=== PATIENT | male | born 1960 | race Caucasian/White ===

== ENCOUNTER 2019-05-13 06:17 | Day surgery (SDC) ==
[2019-05-13] MEDS ORDERED: REGLAN ONE (06:51)
[2019-05-13] MEDS ORDERED: PEPCID ONE (06:51)
[2019-05-13] MEDS ORDERED: KEFZOL 1 GM/D5W 1 GM/50 ML IVPB ONE (06:51)
[2019-05-13] MEDS ORDERED: LR 1,000 ML ONE (06:51)
[2019-05-13] MEDS ORDERED: DIPRIVAN 1% ONE (07:33)
[2019-05-13] MEDS ORDERED: XYLOCAINE-MPF 2% ONE ×2 (07:33→12:57)
[2019-05-13] MEDS ORDERED: VERSED ONE (07:34)
[2019-05-13] MEDS ORDERED: XYLOCAINE 1%/EPI 1:100,000 ONE (09:19)
[2019-05-13] MEDS ORDERED: FENTANYL ONE (11:33)
[2019-05-13] MEDS ORDERED: DECADRON ONE (11:52)
[2019-05-13] MEDS ORDERED: ZOFRAN ONE (11:52)
[2019-05-13] MEDS ORDERED: DILAUDID ONE (12:34)
[2019-05-13] MEDS ORDERED: SODIUM CHLORIDE 0.9% 10 ML ONE (12:47)
[2019-05-13] MEDS ORDERED: PHENERGAN IV PRN (15:07)
[2019-05-13] MEDS ORDERED: MORPHINE IV PRN (15:08)
[2019-05-13] MEDS: NORCO-10 PO PRN ×2 (15:19→21:50)
[2019-05-13] MEDS: MOTRIN PO SCH (19:32)
[2019-05-13] MEDS: COLACE PO SCH (20:40)
[2019-05-13] MEDS: PERIDEX MT SCH (20:41)
[2019-05-13] MEDS: TYLENOL PO SCH (21:51)
--- NOTE | 2019-05-13 22:10 | OPERATIVE NOTE ---
PROCEDURE DATE: 05/13/2019 PREOPERATIVE DIAGNOSIS: 1. Chronic venous hypertension left lower extremity. 2. Ropey varicose veins left lower extremity. 3. Venous insufficiency superficial veins left lower extremity with edema and skin changes. PRINCIPAL PROCEDURE: 1. Open ligation, division, and stripping of the left great saphenous veins from the left saphenous femoral junction to below the knee. 2. Open ligation of mechanical engineering specialist veins, subfascial with ultrasound guidance left leg. SURGEON: Pat Heath MD. FIXTURE BUILDER: Baldo Wright RN. ANESTHESIA: General in addition to local anesthetic. ESTIMATED BLOOD LOSS: 250 mL. DRAINS: None. INDICATIONS: Mr. Pablo Terrell is a 58-year-old white male who has significant bilateral superficial and deep venous insufficiency causing chronic swelling of his legs bilaterally, ropey varicose veins, skin changes and edema of his legs. He has no venous stasis ulcers at this time. He has numerous symptoms including pain of his lower extremities. He has tried to wear compression hose but they cause pain. We have put him through a radiofrequency ablation of his great saphenous vein on the left but because this vein was so large it did not totally ablate this vein and we felt we had to perform an open vein stripping and also ligate some mechanical engineering specialist veins medial aspect left leg to control the amount of superficial venous insufficiency involving his left leg. FINDINGS: He had a large left great saphenous vein that had webs within it but it was still patent enough to have blood flow. We found 2 large perforating veins medial aspect of the left leg above the left ankle and these were ligated below the fascia using an open incision. PROCEDURE: The patient was marked using ultrasound prior to surgery. We marked his left great saphenous vein along its length. We also marked the branches off the left great saphenous vein and the perforators. I marked his ropey varicose veins. He then went to the operating room, was placed supine, received general anesthesia, was intubated and his left lower extremity was prepped and draped in a sterile field. We began the procedure by making a small oblique incision just below the groin on the left with a 15 blade scalpel. We used the cautery to transect through the soft tissue to the superficial fascia where we identified his large proximal great saphenous vein. We dissected it down to where it entered the deep femoral vein. We preserved the epigastric vein branches. We then made a counterincision in the distal left leg overlying the distal great saphenous vein and exposed it. We isolated between silk ties. We made a small venotomy in the saphenous vein and then we placed a stripper device through this venotomy and directed it proximally. We were unable to get all the way to the saphenofemoral junction but we got to about the midthigh. I made a counterincision and brought out the stripping device. We put a large head on the stripper and we pulled the stripper through the medial aspect of the leg and removed the saphenous vein. The remainder of the saphenous vein proximally was removed to the saphenofemoral junction and we ligated the left great saphenous vein at the saphenofemoral junction preserving the epigastric branches. We then took time to make an incision overlying mechanical engineering specialist veins and these were above the left ankle medially where he had skin changes and edema. These were large perforating veins, 2 separate ones. We dissected them down subfascially and ligated them. I ligated not only these perforators but the branches. I sewed the perforators closed using a running 5-0 Prolene stitch. The distal aspect of these perforators were removed. The perforators were allowed to retract back subfascially. We took a total of 6 incisions to remove some varicosities in the remainder of the great saphenous vein medially left leg. We did have some bleeding when we were dealing with perforators. We had a total blood loss of 250 mL. We closed our incisions in layers. First layer was 3-0 popoff Vicryl stitches to close the subcutaneous tissue. The skin was closed with 4-0 Monocryl subcuticular stitches and glue was placed. It must be noted that we did use ultrasound throughout this operation not only to continue to find branches off the great saphenous vein on the left but also define these perforators. I closed the skin overlying the perforators in 2 layers, 1st layer 3-0 Popoff Vicryl stitches and then I closed the skin with a running 3-0 nylon stitch. He tolerated these procedures well. We felt that a lot of his ropey varicose veins may scar down and go away now that we have removed his left great saphenous vein and these large perforators which were also supplying his varicose veins. We placed a knee high hose on him after the procedure. Plans are for him to go the recovery room and at least be hospitalized overnight. He tolerated the procedure well. cc: Pat Heath MD
[2019-05-14] MEDS: MOTRIN PO SCH (01:50)
[2019-05-14] MEDS: TYLENOL PO SCH (05:30)
[2019-05-14] MEDS ORDERED: LOVENOX SUBQ SCH (06:00)
[2019-05-14 07:34] VITALS: BP 110/67
[2019-05-14] MEDS: PERIDEX MT SCH (08:12)
[2019-05-14] MEDS: COLACE PO SCH (08:12)
--- NOTE | 2019-05-14 19:53 | GENERAL SURGERY PROGRESS NOTE ---
DATE: 05/14/2019 SUBJECTIVE: Patient seems to be doing okay. His pain is controlled. OBJECTIVE: Vital Signs: Patient is currently afebrile. His vital signs are stable. General: No acute distress. Cardiovascular: Regular rate and rhythm. Lungs: Grossly clear. Extremities: Compression stocking noted to the leg. It seems to be healing. No active bleeding. ASSESSMENT AND PLAN: A 58-year-old gentleman status post open ligation, division and stripping of left greater saphenous vein. Postoperative state: At this time patient seems to be doing well. We will send him home today. His pain seems to be controlled. cc: MD Pat Bledsoe MD
== END 2019-05-14 09:12 | disposition home or self-care (01) ==
LOC: 4N 06:17 → OR 06:17
PROVIDERS: ATTEND Surgery

== ENCOUNTER 2019-05-17 14:05 | Inpatient (IN) ==
[2019-05-17] MEDS ORDERED: SALINE LOCK IV FLUID XX ONE (15:55)
[2019-05-17] MEDS ORDERED: TYLENOL PO PRN (16:31)
[2019-05-17] MEDS ORDERED: PHENERGAN IV PRN (16:41)
[2019-05-17] MEDS ORDERED: SODIUM CHLORIDE 0.9% INJ PRN (16:45)
[2019-05-17] MEDS: MORPHINE IV PRN ×2 (16:53→20:55)
[2019-05-17] MEDS ORDERED: D5 1/2 NS + KCL 20 MEQ 1,000 ML IV SCH (17:00)
[2019-05-17 17:04] LABS: BASO# 0.03 X1000 (0.0-0.2); BASO% 0.4 % (0.0-0.8); HEMATOCRIT 41.1 % (42.0-52.0); HEMOGLOBIN 13.5 g/dL (14.0-18.0); IMM GRAN# 0.02 X1000 (0.0-0.04); IMM GRAN% 0.2 % (0.0-0.5); LYMPH# 1.25 X1000 (1.2-3.4); LYMPH% 15.2 % (20.5-51.1); MCH 29.2 PG (27-31); MCHC 32.8 g/dL (33-37); MCV 88.8 FL (81-99); MONO# 1.03 X1000 (0.11-0.59); MONO% 12.5 % (1.7-9.3); MPV 9.2 FL (7.4-10.4); NEUT% 71.7 % (42.2-75.2); PLT 207 X1000 (130-400); RBC 4.63 XMIL (4.7-6.1); RDW 13.1 % (11.5-14.5); WBC 8.23 X1000 (4.8-10.8)
--- NOTE | 2019-05-17 17:15 | Diag Imaging Result Doc PS360 ---
EXAM: KUB ABDOMEN - 05/17/2019 HISTORY: SBO TECHNIQUE: Portable AP spine abdomen COMPARISON: None. FINDINGS: There is a moderate amount retained fecal debris in the colon suggesting constipation. The bowel gas pattern is otherwise unremarkable. There is no abnormal gaseous small bowel distention seen. There is lumbar dextro rotatory scoliosis noted. There are osteoarthritic changes noted at the right hip. IMPRESSION: Evidence of constipation. Unremarkable bowel gas pattern otherwise. Electronically signed by Griffin Inman 05/17/2019 5:13 PM
[2019-05-17] MEDS ORDERED: NAPROSYN PO PRN (17:29)
[2019-05-17 17:52] LABS: AGAP 15; BUN 22 mg/dL (8-22); CALCIUM 8.8 mg/dL (8.8-10.2); CHLORIDE 93 mmol/L (98-107); COSMO 273; CREATININE 1.1 mg/dL (0.7-1.2); ESTIMATED GFR > 60; GLUCOSE 121 mg/dL (70-104); PHOSPHORUS 3.6 mg/dL (2.7-4.5); POTASSIUM 4.5 mmol/L (3.5-5.1); SODIUM 134 mmol/L (136-145); TCO2 26 mmol/L (25-35)
[2019-05-17] MEDS: VALTREX PO SCH (17:59)
[2019-05-17] MEDS: NS 1,000 ML IV SCH ×2 (18:00→18:03)
[2019-05-17] MEDS ORDERED: GLYCERIN ADULT PR ONE (20:15)
[2019-05-17] MEDS: COLACE PO SCH (20:54)
[2019-05-17] MEDS: NEURONTIN PO SCH (20:54)
[2019-05-17] MEDS: MIRALAX PO SCH (20:55)
--- NOTE | 2019-05-17 21:55 | HISTORY AND PHYSICAL ---
PRESENTING COMPLAINT: Headache, nausea, vomiting. HISTORY OF PRESENT COMPLAINT: Mr. Terrell is a 58-year-old gentleman who is known to have venous insufficiency. Just recently underwent a left lower extremity venous vascular surgery on 05/13/2019. Mr. Terrell refers that immediately after the surgery, he started feeling a left-sided temporal to the jaw pain. Subsequently, this continued just to get worse. He did not have any visual changes, but then he started having some nausea and vomiting. He went to see Dr. Heath who referred him to the hospital. Mr. Terrell also refers that 3 days ago, he started feeling some rash also on the same side of the pain. He denies any gait disturbances. He denies any rash anywhere else on his body, and he has not traveled recently outside the [place]. PAST MEDICAL HISTORY: DVTs and chronic venous insufficiency. PAST SURGICAL HISTORY: Multiple orthopedic surgeries and recent lower extremity vascular surgeries. FAMILY HISTORY: Unremarkable. SOCIAL HISTORY: Patient denies smoking. Occasional alcohol use, but no recreational drug use. REVIEW OF SYSTEMS: A 14 point review of systems conducted with Mr. Terrell was unremarkable except what we have in the HPI. PHYSICAL EXAMINATION: VITAL SIGNS: Blood pressure is 134/65, pulse of 80, respirations 18, temperature is 100.6 degrees. GENERAL: Mr. Terrell is a 58-year-old gentleman. He is in bed, in no distress. Mucosa is pink and moist. Anicteric and acyanotic. NECK: Supple. HEAD: Normocephalic and atraumatic. FACE: The patient has some mild vesicle rash on the left cheek to the anterior part of the neck on the same side. There are some vesicular lesions up to the chin on the left side. There is tenderness. There is some warm necrotic lesion in the middle of the left cheek, almost to the anterior part of the ear. RESPIRATORY: Good air entry bilaterally. No crepitations. No rhonchi. CARDIOVASCULAR: Regular rate and rhythm. No murmurs, no rubs, no gallops. GI: Abdomen soft, nontender. Bowel sounds present. EXTREMITIES: There is left lower extremity swelling which is in compressive stockings, that had just recent vascular intervention. The right lower extremity also has some erythematous changes in the medial aspect of the lower extremity with some nodulations. CENTRAL NERVOUS SYSTEM: Patient is awake, alert, and oriented. There is no focal neurological deficit. Power is 5/5 in all extremities. Sensation is intact. Cranial nerves 2 through 12 have been grossly examined and unremarkable except for the 5th left trigeminal area, both the submandibular and the maxillary regions. That seems to have erythematous vesicular rash, which is consistent with possible trigeminal zoster. LABORATORY DATA: No lab work for this morning. IMAGING STUDIES: A CT scan of the head and neck, which was done yesterday, showed a submandibular adenopathy. No evidence of arterial abnormality. They did a head CT scan also yesterday which showed just chronic ischemic changes. ASSESSMENT: Mr. Terrell presented with acute onset of left-sided headaches associated with some vesicular rash. No visual changes. Mild elevation in the temperature. 1. Suspected trigeminal zoster infection. We will start the patient on valaciclovir, gabapentin, and get Infectious Disease to evaluate him. Until we get an expert opinion, we will keep him in contact isolation. 2. Nausea and vomiting, probably all related to the viral illness; however, Mr. Terrell also has not had any bowel movement. He was on opioid and I suspect he does have some underlying constipation. We will get a KUB and put him on a bowel regimen. 3. Chronic venous insufficiency, status post recent vascular surgery on the left lower extremity noted. 4. History of deep venous thrombosis. cc: MD Pat Bella MD
--- NOTE | 2019-05-17 23:48 | HISTORY AND PHYSICAL ---
INDICATIONS: Mr. 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 After that surgery was hospitalized overnight and was discharged home on postop day 1, per Dr. Paez. I saw him in our outpatient offices today. He did present to the emergency department yesterday with symptoms of nausea, vomiting and a new rash involving his left face, swelling of his left face and headache. He states that he also might have constipation. It was felt that he needed to be admitted from our outpatient offices today for further treatment of these symptoms and we felt he could have shingles involving his left face. PAST MEDICAL HISTORY: He has had a right total knee replacement per Dr. Randolph, he has had neck surgery, I put him through previous vein surgery which was percutaneous, he has had arthroscopy of both knees. 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 He uses smokeless tobacco. He does not smoke. He drinks occasionally. He is active. FAMILY HISTORY: His father had colon cancer. His mother also had cancer of unknown. REVIEW OF SYSTEMS: A 14 point review of systems was performed and was essentially negative except for is venous insufficiency which was symptomatic with swelling of his lower extremities, ropey varicose veins and skin changes. MEDICATIONS: Gabapentin and Celebrex. ALLERGIES: No known drug allergies. PHYSICAL EXAM: Mr. Pablo Terrell is a middle-aged white male. He has swelling involving his left face and what appears to be a red rash involving his left face which we felt might be shingles. He was complaining of a left-sided headache. He had no cervical or supraclavicular lymphadenopathy. He had no work of breathing. Lungs were clear to auscultation and percussion bilaterally. His heart had a regular rate. His heart rate is 72, blood pressure 123/70, O2 saturation is 99%. He has a low-grade temperature 99.3 degrees, he is 6 feet, 225 pounds. His abdomen was soft, nontender, without palpable mass. No costovertebral tenderness. Rectal exam was not performed. He does have palpable femoral pulses. He has bruising and swelling involving his left lower extremity secondary to recent surgery. He also has multiple small incisions intact along his left leg from his previous surgery. Right leg is with swelling and skin changes consistent with chronic venous insufficiency and venous hypertension of his right lower extremity. Neurologically, he has no focal deficit. He does complain of headache. IMPRESSION: 1. New rash and swelling involving his left face possible shingles. 2. Left-sided headache which is severe. 3. Nausea and vomiting. He states that he cannot even drink that well. 4. Constipation. 5. Postop venous surgery left lower extremity. DIAGNOSTIC DATA: His white blood cell count is 8, hematocrit is 41%. Electrolytes show a BUN and creatinine of 22 and 1.1. His glucose is 121. C-reactive protein is 12.58. Abdominal x-ray suggested constipation. PLAN: I have admitted him. I have asked our hospitalist to see him because of this rash involving his face, his headache. Will hydrate him because of his nausea and vomiting. We will treat his constipation. We will keep him on low-dose Lovenox because of his recent surgery. cc: Pat Heath MD
[2019-05-18] MEDS: MORPHINE IV PRN ×3 (00:52→11:33)
[2019-05-18] MEDS: PHENERGAN PO PRN (01:04)
[2019-05-18 06:59] LABS: BASO# 0.03 X1000 (0.0-0.2); BASO% 0.4 % (0.0-0.8); EOS# 0.09 X1000 (0.0-0.7); EOS% 1.1 % (0.0-10.0); HEMOGLOBIN 12.5 g/dL (14.0-18.0); LYMPH# 2.16 X1000 (1.2-3.4); LYMPH% 26.4 % (20.5-51.1); MCH 28.9 PG (27-31); MCHC 32.1 g/dL (33-37); MCV 90.3 FL (81-99); MONO# 1.12 X1000 (0.11-0.59); MONO% 13.7 % (1.7-9.3); MPV 9.6 FL (7.4-10.4); NEUT# 4.78 X1000 (1.4-6.5); NEUT% 58.4 % (42.2-75.2); PLT 202 X1000 (130-400); RBC 4.32 XMIL (4.7-6.1); RDW 13.2 % (11.5-14.5); WBC 8.18 X1000 (4.8-10.8)
[2019-05-18 07:32] LABS: AGAP 13; ALB/GLOB RATIO 1.3; ALBUMIN 3.6 g/dL (3.5-5.0); ALKALINE PHOSPHATASE 52 U/L (32-122); BUN 24 mg/dL (8-22); CALCIUM 8.6 mg/dL (8.8-10.2); CHLORIDE 95 mmol/L (98-107); COSMO 271; CREATININE 1.1 mg/dL (0.7-1.2); ESTIMATED GFR > 60; GLUCOSE 104 mg/dL (70-104); GOT 16 U/L (10-34); GPT 18 U/L (10-44); POTASSIUM 4.2 mmol/L (3.5-5.1); SODIUM 133 mmol/L (136-145); TCO2 25 mmol/L (25-35); TOTAL BILIRUBIN 0.88 mg/dL (0.20-1.00); TOTAL PROTEIN 6.3 g/dL (6.3-8.3)
[2019-05-18] MEDS: PRILOSEC PO SCH (07:51)
[2019-05-18] MEDS: MIRALAX PO SCH (08:13)
[2019-05-18] MEDS: NEURONTIN PO SCH ×2 (08:14→20:40)
[2019-05-18] MEDS: VALTREX PO SCH (08:14)
[2019-05-18] MEDS: LOVENOX SUBQ SCH (08:14)
[2019-05-18] MEDS: COLACE PO SCH ×2 (08:14→20:40)
[2019-05-18] MEDS: NORCO-10 PO PRN ×2 (09:42→20:40)
[2019-05-18] MEDS: ZOVIRAX IV SCH ×2 (11:33→18:47)
[2019-05-18] MEDS: NS IV SCH ×2 (11:33→18:47)
--- NOTE | 2019-05-18 13:39 | PROGRESS NOTE ---
DATE: 05/18/2019 SUBJECTIVE: This morning Mr. Terrell refers to be having a lot of headaches. He has not had any vomiting and no bowel movement. OBJECTIVELY: Vital: Blood pressure is 103/56, pulse of 62, respiration is 18, temperature 98.9 degrees. General: Mr. Terrell is a 58-year-old gentleman. He is in bed. He is not in any cardiopulmonary distress. HEENT: Mucosa is pink and moist. Anicteric. Acyanotic. Face: There is still some erythematous vesicular rash on the left side of the face. Neck: Supple. Chest: Good air entry bilaterally. There was no crepitations no rhonchi. Cardiovascular: Regular rate and rhythm. Abdomen: Soft. Bowel sounds reduced. Extremities: The left lower extremity has minimal swelling from recent vascular surgery. Some bruises on the right as well. 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 No meningeal signs. LABORATORY DATA: WBC is 8.18, hemoglobin is 12.5, platelet count of 202,000. Chemistry is also reviewed, unremarkable. The patient has been started on IV acyclovir. ASSESSMENT: 1. Suspected trigeminal zoster infection. Patient is currently switched to IV acyclovir with a suspicion of possible zoster encephalitis Mr. Terrell continued having headaches. He was slightly febrile earlier on and he was having some nausea and vomiting, so I think it is reasonable for lumbar puncture. I have discussed this with Dr. Hernandez who is Infectious Disease and he is recommending that we get an lumbar puncture. We will try get an lumbar puncture this afternoon. 2. Constipation will continue bowel movement. 3. Chronic venous insufficiency. The patient is still status post recent vascular surgery on the left lower extremity. 4. History of deep venous thromboses. Patient is on deep venous thrombosis prophylaxis. cc: Lexx Dietz MD
--- NOTE | 2019-05-18 15:02 | INFECTIOUS DISEASE CONSULT REP ---
DATE: 05/18/2019 CONCLUSION: I agree with Dr. Dietz that the patient does have left-sided facial shingles. I am concerned that the patient may have varicella zoster virus encephalitis in view of the fact that the patient has this horrible continuous headache. RECOMMENDATIONS: I have discontinued the Valtrex and have started the patient on IV acyclovir. The dose I have ordered is 10 mg/kg IV every 8 hours. Some of the side effects of the medication including renal toxicity, and hematotoxicity have been explained to the patient who agrees with treatment. I have requested for Dr. Dietz to do a spinal tap on the patient and I have ordered tests to be done on the spinal fluid. DISCUSSION: The patient tells me that approximately a week ago he had vascular surgery on his left leg. Approximately 5 days ago, he started noticing some left facial lesions. He describes the lesions were vesicles and when he would pop the vesicles, he said clear fluid would come out. He has had very severe left-sided facial pain and also he said he has a very severe headache that the pain medicine is not relieving. Also, in the past 5 days, the patient has not passed a stool. His laboratory studies thus far show a CBC with a white count of 8180, hemoglobin 12.5, and platelet count 202,000. Creatinine is 1.1. GFR is greater than 60. Liver function studies are normal. PAST MEDICAL HISTORY/REVIEW OF SYSTEMS: Eyes and ears: His hearing and vision is good. Neck: No stiffness. Respiratory: No cough or shortness of breath. Cardiac: No chest pain or palpitations. Gastrointestinal: See present illness. Genitourinary: No dysuria or flank pain. Bones, joints, muscles. He does sometimes have pain in his knees for which he has had bilateral total knee arthroplasties. Integument: No rashes. He does have some discoloration of the left leg where he just recently had vascular surgery. MEDICAL DISEASES: Negative for diabetes mellitus and hypertension. INFECTIOUS DISEASE HISTORY: No history of pneumonia or urinary tract infection. He was uncertain as to whether he had chickenpox as a child. FAMILY HISTORY: Positive for cancer. Negative for heart attack or hypertension. SOCIAL HISTORY: [place] He is . He lives alone. 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 HOME MEDICATIONS: His only home medication is hydrocodone. The patient does not smoke cigarettes, drink alcoholic beverages or abuse drugs. He does not have any pets at home either. PHYSICAL EXAMINATION: Vital Signs: Temperature is 99.4 degrees, pulse 59, respirations 16, blood pressure is 109/53. The patient is 6 feet tall, weighs 225 pounds. General: This is an ill- appearing middle-aged male. He is in no acute distress, but he does say his headache is bothering him quite a bit. Head/eyes/ears/nose/throat: The patient still has a very few vesicular lesions on the left side of the face. The others appear to have crusted over. There was one small pustule on the right side of the face. Neck: No meningismus. Lungs: Clear to auscultation. Cardiovascular: Heart rate is regular. Abdomen: Soft and nontender. Extremities: The patient has had bleeding into the left leg tissue and it has turned a yellowish brown color. The leg also is swollen. This is the leg that he just finished having vascular surgery on about 5 days ago. Neurologic: Patient is alert. He can move his extremities. There is no tremor. His memory as regarding his medical history is intact. Thank you for the consult. cc: MD Lexx Puri MD
[2019-05-18] MEDS ORDERED: DILAUDID IV ONE (15:49)
[2019-05-18 16:43] LABS: GLUCOSE CSF 51 mg/dL (39-75); PROTEIN CSF 67.3 mg/dL (15-45)
[2019-05-18] MEDS: NS 1,000 ML IV SCH ×2 (16:55→20:42)
[2019-05-18 17:58] LABS: APPEARANCE CLEAR; RBC BF 10 /cumm; WBC BF 233 /cumm
[2019-05-18 18:32] LABS: POLYS 4 %
[2019-05-18 18:33] LABS: MONOS 96 %
--- NOTE | 2019-05-18 20:50 | OPERATIVE NOTE ---
PROCEDURE DATE: 05/18/2019 TYPE OF PROCEDURE: Lumbar puncture. INDICATIONS: Rule out an infectious encephalitis. HISTORY: Mr. Terrell is a 58-year-old gentleman who presented to the emergency department because of headaches, nausea, vomiting, some low-grade fever, and was found to have a left trigeminal zoster. ID was consulted. Dr. Hernandez evaluated the patient and felt that an LP was necessary. The procedure was completely explained to Mr. Terrell including its complications, infections, possible traumatic injury, and nerve injury. Mr. Terrell consented to do the procedure. PROCEDURE IN DETAIL: Mr. Terrell was positioned on left the lateral position. The 3rd and 4th lumbar spaces were identified by landmarks, and the area was clean with iodine. Subsequently the marked landmark was infiltrated with lidocaine as a local anesthetic agent. The landmark was reaffirmed to make sure we were in the 3rd intervertebral spine space. Once this was reconfirmed, we advanced the spinal tap needle into the space, progressively we felt the entrance into the subarachnoid space. The needle stylo was removed, we had an immediate flow of clear CSF under normal pressure. The 4 bottles were sampled, and subsequently the stylo was placed back and the needle was subsequently removed. Entrance site was covered with a sterile plaster, and he has been advised to lay flat for the next 4 hours. He has also been advised that he can have headaches after the LP. Mr. Terrell tolerated the procedure without any immediate complications, and there was no blood loss. The 4 bottles were sent for regular testing, and we will follow up on the results. I had a medical student to help me with the procedure. cc: MD MARTÍNEZ Bella
[2019-05-19] MEDS: ZOVIRAX IV SCH ×3 (01:22→17:29)
[2019-05-19] MEDS: NS IV SCH ×3 (01:22→17:29)
[2019-05-19] MEDS: PRILOSEC PO SCH (06:17)
[2019-05-19] MEDS: NORCO-10 PO PRN ×3 (06:29→20:53)
[2019-05-19 06:31] LABS: BASO# 0.03 X1000 (0.0-0.2); BASO% 0.5 % (0.0-0.8); EOS# 0.08 X1000 (0.0-0.7); EOS% 1.4 % (0.0-10.0); HEMATOCRIT 36.8 % (42.0-52.0); IMM GRAN# 0.02 X1000 (0.0-0.04); IMM GRAN% 0.3 % (0.0-0.5); LYMPH# 1.45 X1000 (1.2-3.4); LYMPH% 24.5 % (20.5-51.1); MCH 29.2 PG (27-31); MCHC 32.6 g/dL (33-37); MCV 89.5 FL (81-99); MONO# 0.68 X1000 (0.11-0.59); MONO% 11.5 % (1.7-9.3); MPV 9.4 FL (7.4-10.4); NEUT# 3.65 X1000 (1.4-6.5); NEUT% 61.8 % (42.2-75.2); PLT 192 X1000 (130-400); RBC 4.11 XMIL (4.7-6.1); RDW 13.1 % (11.5-14.5); WBC 5.91 X1000 (4.8-10.8)
[2019-05-19 06:58] LABS: AGAP 11; ALBUMIN 3.5 g/dL (3.5-5.0); BUN 18 mg/dL (8-22); CALCIUM 8.1 mg/dL (8.8-10.2); CHLORIDE 98 mmol/L (98-107); COSMO 268; CREATININE 0.9 mg/dL (0.7-1.2); ESTIMATED GFR > 60; GLUCOSE 96 mg/dL (70-104); PHOSPHORUS 2.8 mg/dL (2.7-4.5); SODIUM 133 mmol/L (136-145); TCO2 24 mmol/L (25-35)
[2019-05-19] MEDS: LOVENOX SUBQ SCH (09:28)
[2019-05-19] MEDS: NEURONTIN PO SCH ×2 (09:29→20:54)
[2019-05-19] MEDS: COLACE PO SCH ×2 (09:29→20:54)
[2019-05-19] MEDS: MIRALAX PO SCH (09:29)
[2019-05-19] MEDS ORDERED: MIRALAX PO SCH (10:15)
[2019-05-19] MEDS: MORPHINE IV PRN ×3 (10:25→23:04)
[2019-05-19] MEDS: NS 1,000 ML IV SCH ×2 (15:23→19:36)
[2019-05-19] MEDS ORDERED: LMX 5 CREAM TOP PRN (15:30)
--- NOTE | 2019-05-19 17:50 | PROGRESS NOTE ---
DATE: 05/19/2019 SUBJECTIVE: This morning, Mr. Terrell refers to be doing slightly better. He said he still has the headaches, but they are less intense than days before. He has not had any more vomiting, but he has not had any bowel movement since admission. OBJECTIVE: Vital signs: Blood pressure is 109/56, pulse of 81, respirations 16, temperature 98.5 degrees. General: Mr. Terrell is a 58-year-old gentleman. He is in bed. HEENT: No distress, mucosa is pink and moist. Anicteric. Acyanotic. Neck: Supple. Chest: Good air entry bilaterally. No crepitations. No rhonchi. Cardiovascular: Regular rate and rhythm. There was no murmurs. No rubs. No gallops. Gastrointestinal: Abdomen was soft, nontender. Bowel sounds present. Extremities: The left lower extremity has minimal swelling from recent vascular surgery, was in JOSE L hose. The right has some old erythematous changes noted. Central Nervous System: Patient is awake, alert, oriented. There is no meningeal signs. Face, still has some erythematous vascular rash on the left face, some of the areas look quite necrotic. LABORATORY DATA: WBC is 5.91, hemoglobin is 12.0, platelet count of 192,000. Chemistry is also reviewed and is completely within normal range. The patient had an LP done yesterday. The fluid analysis did show WBC on the CSF was 222. There was 96% lymphocytic. There is also mildly elevated protein. The CSF meningitis panel is positive for varicella zoster antibody. ASSESSMENT: 1. Herpes zoster encephalitis. The patient is currently on IV acyclovir. Infectious Disease is on board. 2. Left trigeminal zoster cutaneous infection noted. 3. Constipation. Will continue bowel regimen. 4. Chronic venous insufficiency. Patient is status post recent vascular surgery on the left lower extremity. 5. History of deep venous thrombosis. In general, I think Mr. Terrell seems to be getting slightly better. We will continue with the IV acyclovir and the pain management and follow up with further recommendations from Infectious Disease. cc: Lexx Dietz MD
--- NOTE | 2019-05-19 19:50 | PROGRESS NOTE ---
DATE: 05/18/2019 Mr. Terrell has developed shingles and is being treated with antiviral medications. His left leg remains bruised, some swelling. Incisions seemed to be healing well. We do have him on low-dose Lovenox. cc: MD Lexx Hoover MD
--- NOTE | 2019-05-19 22:09 | INFECTIOUS DISEASE PROGRESS NO ---
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 His headache has mildly improved today. MEDICATIONS: He is receiving acyclovir 1 g IV every 8 hours. Today is day one of that medication. PHYSICAL EXAM: Vital signs: Temperature is 98.3 degrees, pulse rate 69, respiratory rate 18, blood pressure 101/59, O2 saturation is 97% on room air. Generally this is an ill- appearing middle-aged gentleman. He is sitting up in the bed, currently complaining of a mild headache which he rates as an 8/10 on the 0-10 scale. HEENT: There are infrequent vesicular lesions on the left side of his face which have mostly crusted over. Conjunctivae are pink, and oral mucous membranes are pink and moist. Neck is supple and trachea is midline. Cardiovascular: Heart rate is regular. S1, S2 noted. Respiratory: Lung sounds are bilaterally clear to auscultation. Integumentary: Skin is warm and dry. There is a rash to the left side of his back with multiple erythematous bumps and infrequent vesicles. Neurologic: He is awake, alert and oriented, able to ambulate independently. LABS AND IMAGING: Today his white count is 5.91, hemoglobin 12, platelet count 192,000. Creatinine is 0.9. Estimated GFR is greater than 60. Cerebrospinal fluid drawn yesterday is clear, with 233 WBCs, 4% polynuclear WBCs and 96% mononuclear. The CSF meningitis/encephalitis panel by PCR was negative except for a positive antibody to the varicella zoster virus. Cerebrospinal fluid has shown no growth on the preliminary report of culture, with no bacteria seen on the Gram stain. No imaging reports today. 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 He will require 2 weeks of treatment using intravenous acyclovir 1 g every 8 hours. We have talked to him about this as far as requirements of [id number] dosing at home and peripherally inserted central catheter line insertion, with procedures and protocols reviewed. The patient agrees to proceeding with the plan. Peripherally inserted central catheter line orders have been put in the computer, as well as orders for [facility] to provide intravenous acyclovir at home. We will plan to see him in the office in 2 weeks. These plans have been discussed with and recommended by Dr. Hernandez. COMORBIDITIES: for Mr. Terrell include history of deep venous thrombosis and chronic venous insufficiency. Dictated by IVÁN Reed for Frankie Hernandez MD cc: MD Lexx Puri MD [facility]
[2019-05-20] MEDS: NS IV SCH ×3 (02:43→18:08)
[2019-05-20] MEDS: ZOVIRAX IV SCH ×3 (02:43→18:08)
[2019-05-20] MEDS: NORCO-10 PO PRN (05:31)
[2019-05-20] MEDS: NS 1,000 ML IV SCH ×2 (05:32→18:08)
[2019-05-20] MEDS: PRILOSEC PO SCH (06:14)
[2019-05-20 07:09] LABS: INR 1.05; PROTIME 13.9 Seconds (11.0-16.0)
[2019-05-20] MEDS ORDERED: NS 250 ML ONE (08:51)
[2019-05-20] MEDS: COLACE PO SCH ×2 (10:27→21:22)
[2019-05-20] MEDS: NEURONTIN PO SCH ×2 (10:27→21:22)
[2019-05-20] MEDS: MIRALAX PO SCH (10:27)
[2019-05-20] MEDS: LOVENOX SUBQ SCH (10:28)
[2019-05-20] MEDS: MORPHINE IV PRN ×4 (10:28→21:21)
[2019-05-20] MEDS: PHENERGAN PO PRN (16:03)
--- NOTE | 2019-05-20 19:25 | PROGRESS NOTE ---
DATE: 05/20/2019 Mr. Terrell status post left lower extremity vein stripping and ligation of venous perforators left leg. In the postoperative course it was complicated with the development of shingles involving his left face and actually a spinal tap suggested it was in his spinal fluid. He has been receiving IV antiviral medication that needs to persist for at least 2 more weeks. A PICC line has been placed today and arrangements for home IV medications are being made. I feel that the wounds involving his left lower extremity are doing well. He is wearing knee-high compression hose. I think the plans are for him to be discharged tomorrow and once he completes his antiviral medication I can see him back in our outpatient offices for recheck of his left lower extremity and removal of his stitches. He has been on low-dose Lovenox while hospitalized. cc: MD Lexx Hoover MD
--- NOTE | 2019-05-20 21:37 | PROGRESS NOTE ---
DATE: 05/20/2019 SUBJECTIVE: This morning Mr. Terrell refers to be doing a lot better. Headaches are getting under control. OBJECTIVE: Vital signs: Blood pressure is 111/56, pulse of 64, respirations 20, temperature 98.4 degrees. The patient is saturating 100% on room air. General: Mr. Terrell is a 58-year-old male. He is in bed in no distress. Mucosa is pink and moist. Anicteric. Acyanotic. Neck: Supple. Chest: Good air entry bilateral. There were no crepitations, no rhonchi. Cardiovascular: Regular rate and rhythm. No murmurs, no rubs, no gallops. Gastrointestinal: Abdomen is soft, nontender. Bowel sounds present. Extremities: Left lower extremity continues to have some minimal swelling, has JOSE L hose on. Central nervous system: Patient is awake, alert, and oriented. Face: Some erythematous vascular rash on the left, which seems to be drying up. LABORATORY DATA: No lab work for this morning. Patient's varicella zoster PCR in the CSF came back positive. ASSESSMENT: 1. 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 The patient is currently on IV acyclovir for a total of 14 days. He just got a PICC line. [facility] has been consulted, and there is a plan to have him discharged tomorrow on home IV antiviral. 2. Left trigeminal zoster cutaneous infection noted. 3. Constipation improving with bowel regimen. 4. Chronic venous insufficiency. Patient is status post recent vascular surgery on the left lower extremity. 5. History of deep venous thromboses. Mr. Terrell is doing well. We are going to continue with the current management. He is getting all his antiviral medications arranged by [facility] and hopefully get him discharged tomorrow. cc: Lexx Dietz MD
[2019-05-21] MEDS: NS IV SCH ×2 (02:26→09:37)
[2019-05-21] MEDS: ZOVIRAX IV SCH ×2 (02:26→09:37)
--- NOTE | 2019-05-21 04:42 | INFECTIOUS DISEASE PROGRESS NO ---
DATE: 05/20/2019 PRESENT ILLNESS: The patient has varicella zoster virus encephalitis. His headaches are improving. MEDICATIONS: The patient receives acyclovir 1 g IV every 8 hours. PHYSICAL EXAMINATION: Vital Signs: Temperature is 98.4 degrees, pulse 64, respirations 20, blood pressure 111/56. General: This is an ill-appearing middle-aged male he is in no acute distress. Head/eyes/ears/nose/throat: He can hear my spoken words and see near objects. I did not see any vesicular lesions or white coating of his tongue. Neck: He moves his neck without pain. Lungs: Clear to auscultation. Cardiovascular: Heart rate is regular. Back: The patient's erythematous punctate rash is clearing. Abdomen: Soft and nontender. Neurologic: The patient is alert. He ambulates without difficulty. He talks in a coherent fashion. Extremities: The patient has a PICC in the left arm, the site is not erythematous or purulent. LABORATORY AND RADIOLOGY: There is no new radiographic study today. The CBC shows a white count of 5910, hemoglobin 12 and platelet count 192,000. Creatinine is 0.9, GFR is greater than 60. Culture of the cerebral spinal fluid is negative. The cerebral spinal fluid has a white blood cell count of 233, protein of 67 and a glucose of 51. The patient meningitis encephalitis panel is positive by PCR for varicella zoster virus. ASSESSMENT AND PLAN: Patient has varicella zoster virus encephalitis. The plan is to treat with IV acyclovir for 2 more weeks. The patient will be given an appointment in my office in 2 weeks, at which time, hopefully, he will be much better and we can take out his PICC. COMORBIDITIES: The patient has a history of deep venous thrombosis and chronic venous insufficiency. He really does not have a comorbidity that could be causing his varicella zoster virus encephalitis. cc: MD Lexx Puri MD
[2019-05-21] MEDS: PRILOSEC PO SCH (06:54)
[2019-05-21] MEDS: NS 1,000 ML IV SCH (06:54)
[2019-05-21] MEDS: COLACE PO SCH (09:31)
[2019-05-21] MEDS: MORPHINE IV PRN (09:31)
[2019-05-21] MEDS: NEURONTIN PO SCH (09:33)
[2019-05-21] MEDS: LOVENOX SUBQ SCH (09:34)
[2019-05-21] MEDS: MIRALAX PO SCH (09:34)
[2019-05-21 11:16] VITALS: BP 115/68
--- NOTE | 2019-05-22 04:05 | GENERAL SURGERY PROGRESS NOTE ---
DATE: 05/21/2019 SUBJECTIVE: The patient is doing well, except for headaches. OBJECTIVE: Vital signs: He is afebrile. Vital signs are stable. General: He is awake, alert, oriented x3. No acute distress. ASSESSMENT AND PLAN: A 58-year-old male status post left leg saphenous vein stripping. He has developed shingles in his face. He is being discharged with IV antivirals for the next 2 weeks. cc: MD Lexx Wharton MD
--- NOTE | 2019-05-22 15:11 | DISCHARGE SUMMARY ---
ADMISSION DATE: 05/17/2019 DISCHARGE DATE: 05/21/2019 DISPOSITION: Home. FOLLOWUP: 1. Dr. Hernandez. 2. Dr. Heath. 3. IVÁN Storm. CONSULTATIONS DURING THIS ADMISSION: 1. Hospitalist Services were actually consulted. 2. Infectious Disease was also consulted. The patient was seen by Dr. Hernandez. INVASIVE PROCEDURES DONE DURING THIS ADMISSION: LP was done on 05/18/2019. IMAGING STUDIES OF SIGNIFICANCE: A KUB showed evidence of constipation. MICROBIOLOGY DATA OF SIGNIFICANCE: The patient's LP did show WBC of 233 with lymphocytic predominant. The zoster virus antibody was positive, and then the PCR was also positive. PRESENTING COMPLAINT: Headache, nausea, vomiting. HISTORY OF PRESENTING COMPLAINT: Mr. Terrell is a 58-year-old gentleman who was seen by Surgery recently for venous insufficiency surgery. Went home and started having some left-sided facial pain with some rash associated with intense generalized headaches, which was not getting better with any pain medicine. He also did have nausea and vomiting. He was referred to the ER by his surgeon, who consulted us. Mr. Terrell was seen, and there was a suspicion of trigeminal zoster infection, nausea and vomiting could be related to viral illness, and was admitted to the medical floor. He was initially started on Valtrex. ID was consulted. Dr. Hernandez thought that the patient could have zoster encephalitis as well, so he requested that we do an LP, which I did that on Mr. Terrell, and was successful without any complications. The fluid analysis came back positive for zoster, both antibody and the PCR were also positive on the CSF. He was started on IV acyclovir. Throughout the hospital course, headache continues to be improving. The patient has been arranged to get IV acyclovir for a total of 14 days, and he will follow up with Dr. Hernandez. [facility] has been consulted to provide the home IV antiviral. This morning, Mr. Terrell refers to be doing a lot better. We think he is now stable to be discharged. His current vitals show blood pressure is 115/68, pulse of 83, respirations 20, temperature 98.3 degrees. He still has some residual headaches, which I think are eventually going to get better as the treatment continues. DISCHARGE DIAGNOSIS: 1.Zoster Encephalitis 2. Left trigeminal zoster infection 3. Headaches 4. Chronic venous Insufficiency s/p recent vascular surgery DISCHARGE MEDICATIONS: 1. [place]. 2. MiraLAX. 3. Gabapentin 200 b.i.d. 4. Colace 100 mg b.i.d. 5. Promethazine. 6. Acyclovir 1 gram every 8 hours for a total of 14 days. TIME SPENT FOR DISCHARGE: 38 minutes. cc: MD Frankie Bella MD Lynn R. Buckner, MD Eric Crampsey, CRNP MTDD
== END 2019-05-21 12:35 | disposition home or self-care (01) | DRG 74 ==
LOC: DIRADM 14:05 → EDIPHOLD 14:57 → 4N 17:26
PROVIDERS: ADMIT Internal Medicine; ATTEND Surgery